=== PATIENT | female | born 1980 | race Caucasian/White ===

== ENCOUNTER 2019-10-23 12:19 | Emergency (ER) | payer MEDICAID, OTHER ==
[~2019-10-23] VITALS: Ht 172.7 cm; Wt 75.9 kg
[2019-10-23 12:29] VITALS: BP 122/81
[2019-10-23] MEDS ORDERED: ketorolac trometh. 30mg/ml inj. IM ONE (12:35)
[2019-10-23] MEDS ORDERED: ondansetron 4mg rapidly disintigrating tab PO ONE (12:35)
[2019-10-23] MEDS ORDERED: proCHLORperazine 10 MG/2 ml inj IM ONE (12:35)
[2019-10-23] MEDS ORDERED: dexamethasone 4mg tablet PO ONE ×2 (12:55→13:05)
== END 2019-10-23 13:44 | disposition home or self-care (01) ==
LOC: ER 12:20
DX: G43.909 Migraine, unspecified, not intractable, without status migrainosus (principal); Z88.5 Allergy status to narcotic agent; Z88.6 Allergy status to analgesic agent
CPT/HCPCS: 96372; 99283; J0780; J1885